=== PATIENT | female | born 1985 | race Caucasian/White ===

== ENCOUNTER 2019-04-25 16:21 | Inpatient (IN) | payer OTHER ==
[~2019-04-25] VITALS: Ht 162.6 cm; Wt 122.8 kg
[~2019-04-25 16:21] MED LIST: IRON18TA PO; PREN1TAB49 PO
[2019-04-25 16:40] VITALS: Ht 162.6 cm; Wt 122.8 kg
[2019-04-25] MEDS ORDERED: METH-480 PO (16:41)
[2019-04-25] MEDS ORDERED: METHYLDOPA 500 MG TAB PO SCH (17:00)
[2019-04-25] MEDS ORDERED: LACTATED RINGER'S 1,000 ML IV SCH ×2 (18:02→21:34)
[2019-04-25 19:08] VITALS: BP 137/81; PULSE 79; RESP 19
--- NOTE | 2019-04-25 19:45 | HP ---
Date/Time of Note Date/Time of Note DATE: 04/25/19 TIME: 19:42 OB - History Hx of Present Chief Complaint: referred from NST due to elevated BP Estimated Due Date: May 21, 2019 Care: Good Care Ultrasounds: Normal mid trimester US Obstetrical Complications: None Medical Complications: Other (chronic hypertension) Past Family/Social History * Past Medical, Surgical, Family and Obstetric Histories reviewed from chart. OB Admission Exam Vital Signs Vital Signs Vital Signs Date Temp Pulse Resp B/P (MAP) Pulse Ox O2 O2 Flow FiO2 Time Delivery Rate 04/25/19 98.3 79 19 137/81 Room Air 19:08 (99) Physical Exam HEENT: WNL Heart: Rhythm Normal Lungs: Clear, Equal Abdomen: WNL Extremities: Normal Reflexes: Normal Heart Rate: 120's Accelerations: Accelerations Present Decelerations: No Decelerations Last 72 hours Lab Results CBC & BMP 04/25/19 17:12 Liver Function Test 04/25/19 17:12 Alanine Aminotransferase (ALT/SGPT) 23 Albumin 3.1 L Alkaline Phosphatase 114 Aspartate Amino Transf (AST/SGOT) 20 Direct Bilirubin 0.00 Total Protein 6.1 OB Assessment/Plan Reason for admission: other Other Assessment: R/O superimposed preeclampsia Plan: Other Other plan: Admit Monitor BP PI labs ANGELA PAIZ MD Apr 25, 2019 19:45
[2019-04-25] MEDS ORDERED: METHYLDOPA 250 MG TAB PO SCH (20:00)
[2019-04-25] MEDS ORDERED: LACTATED RINGER'S 1,000 ML IV PRN (21:34)
[2019-04-25] MEDS ORDERED: MAGNESIUM SULFATE 4 GM/100 ML 100 ML ONE (21:52)
[2019-04-25] MEDS ORDERED: OXYTOCIN 30 UNITS/LR 500 ML IV SCH ×2 (22:00)
[2019-04-25] MEDS ORDERED: LIDOCAINE 1% (MPF) 30 ML INJ INJ PRN (22:00)
[2019-04-25] MEDS ORDERED: OXYTOCIN 30 UNITS/LR 500 ML IV PRN (22:00)
[2019-04-25] MEDS ORDERED: IBUPROFEN 600 MG TAB PO PRN (22:00)
[2019-04-25] MEDS ORDERED: MAGNESIUM SULFATE 4 GM/100 ML 100 ML IV ONE (22:00)
[2019-04-25] MEDS ORDERED: METHYLERGONOVINE 0.2 MG INJ IM PRN (22:00)
[2019-04-25] MEDS ORDERED: MISOPROSTOL 200 MCG TAB PR PRN (22:00)
[2019-04-25] MEDS ORDERED: CARBOPROST 250 MCG INJ IM PRN (22:00)
[2019-04-25] MEDS ORDERED: LABETALOL HCL 20MG INJ IV PRN (22:00)
[2019-04-25] MEDS ORDERED: BUTORPHANOL 2 MG INJ IV PRN (22:00)
[2019-04-25] MEDS: MAGNESIUM SULFATE 20 GM/500 ML 500 ML IV SCH (22:48)
[2019-04-26] MEDS: MISOPROSTOL 50 MCG CAPSULE PO SCH ×2 (00:23→05:00)
[2019-04-26] MEDS ORDERED: OXYTOCIN 30 UNITS/LR 500 ML IV SCH (04:30)
[2019-04-26] MEDS: MAGNESIUM SULFATE 20 GM/500 ML 500 ML IV SCH ×2 (08:44→18:31)
[2019-04-26] MEDS ORDERED: PRENATAL VITAMIN PO SCH (09:00)
[2019-04-26] MEDS ORDERED: FERROUS SULFATE (EC) 325 MG TAB PO SCH (09:00)
--- NOTE | 2019-04-26 10:08 | PREAC ---
Date/Time of Note Date/Time of Note DATE: 04/26/19 TIME: 10:06 Anesthesia Eval and Record Evaluation Time Pre-Procedure Interview DATE: 04/26/19 TIME: 10:06 Age 33 Sex female NPO: 8 hrs Preoperative diagnosis Planned procedure labor epidural Past Medical History Past Medical History: Includes Cardio: HTN : : (2), Para: (1), Gestational age: (36.3), PIH Surgery & Anesthesia Issues No known issue Meds Anticoagulation: No Beta Willy within 24 hr: No Reason Beta Willy not given: Pt. not on B-Willy Reported Medications Methyldopa* (Aldomet*) 500 Mg Tab, 500 MG PO BID, #60 TAB 04/25/19 Iron (Iron) 18 Mg Tablet, 18 MG PO DAILY 08/27/11 Vits W-Ca,Fe,Fa(<1MG) () 1 Tab Tablet, 1 TAB PO DAILY 08/27/11 Current Medications Prenat Multivit/ [place] Machine Operator/Iron/Folic Ac () 1 tab DAILY PO ; Start 04/26/19 at 09:00 Ferrous Sulfate (Ferrous Sulfate (Ec)) 325 mg DAILY PO ; Start 04/26/19 at 09:00 Methyldopa (Aldomet) 500 mg BID PO Last administered on 04/25/19at 20:02; Admin Dose 500 MG; Start 04/25/19 at 20:00 Lactated Ringer's 1,000 ml @ 75 mls/hr [id number] IV Last administered on 04/26/19at 05:38; Admin Dose 75 MLS/HR; Start 04/25/19 at 21:34 Butorphanol Tartrate (Stadol) 2 mg Q2H PRN IV .PAIN SCALE 6-10; Start 04/25/19 at 22:00 Lidocaine (Xylocaine 1% (Mpf)) 30 ml ONCE PRN INJ .EPISIOTOMY; Start 04/25/19 at 22:00 Oxytocin/Lactated Ringer's 500 ml @ 500 mls/hr ONCE POST IV ; Start 04/25/19 at 22:00 Oxytocin/Lactated Ringer's 500 ml @ 125 mls/hr POST IV ; Start 04/25/19 at 22:00 Ibuprofen (Motrin) 600 mg ONCE PRN PO .PAIN 1-5; Start 04/25/19 at 22:00 Lactated Ringer's 1,000 ml @ 2,000 mls/hr Q30M PRN IV .ANESTHESIA; Start 04/25/19 at 21:34 Oxytocin/Lactated Ringer's 500 ml @ 0 mls/hr ONCE PRN IV .VAGINAL BLEEDING; Start 04/25/19 at 22:00 Methylergonovine Maleate (Methergine) 0.2 mg ONCE PRN IM .VAGINAL BLEEDING; Start 04/25/19 at 22:00 Carboprost Tromethamine (Hemabate) 250 mcg ONCE PRN IM .VAGINAL BLEEDING; Start 04/25/19 at 22:00 Misoprostol (Cytotec) 1,000 mcg ONCE PRN HI .VAGINAL BLEEDING; Start 04/25/19 at 22:00 Misoprostol (Cytotec 50 Mcg Capsule) 50 mcg Q4 PO Last administered on 04/26/19at 00:23; Admin Dose 50 MCG; Start 04/26/19 at 01:00 Magnesium Sulfate 500 ml @ 50 mls/hr Q10H IV Last administered on 04/26/19at 08:44; Admin Dose 50 MLS/HR; Start 04/25/19 at 21:34 Labetalol HCl (Labetalol) 20 mg PRN PRN IV ELEVATED BLOOD PRESSURE Last admini stered on 04/25/19at 22:49; Admin Dose 20 MG; Start 04/25/19 at 22:00 Oxytocin/Lactated Ringer's 500 ml @ 0 mls/hr FOR INDUCTION IV Last administered on 04/26/19at 05:39; Admin Dose 1 MLS/HR; Start 04/26/19 at 04:30 Meds reviewed: Yes Allergies Coded Allergies: No Known Drug Allergies (Verified Allergy, Unknown, 04/25/19) Allergies Reviewed: Yes Labs/Studies Labs Reviewed: Reviewed by anesthesiologist Result Diagram: 04/25/19 1712 04/25/19 1712 Laboratory Tests 04/25/19 17:12 Blood Bank Test 04/25/19 17:11 Antibody Screen NEGATIVE Blood Type A POSITIVE Rh Immune Globulin Candidate NO test: N/A Pre-procedure Exam Last vitals Vital Signs Date Temp Pulse Resp B/P (MAP) Pulse Ox O2 O2 Flow FiO2 Time Delivery Rate 04/25/19 98.3 79 19 137/81 Room Air 19:08 (99) Airway: Adequate mouth opening, Adequate thyromental dist Mallampati: Mallampati II Teeth: Normal Lung: Normal Heart: Normal ASA Physical Status ASA physical status: 2 Emergency: None Planned Anesthetic Neuraxial: Epidural Planned Pain Management Epidural Pre-operative Attestations Prior to commencing anesthesia and surgery, the patient was re-evaluated, there was verification of: *The patient's identity *The results of appropriate recent lab work and preoperative vital signs *The above evaluation not changing prior to induction *Anesthetic plan, risk benefits, alternative and complications discussed with patient/family; questions answered; patient/family understands, accepts and wishes to proceed. MAMI GROVE MD Apr 26, 2019 10:08
[2019-04-26] MEDS ORDERED: NALOXONE (0.4 MG/ML) INJ IV PRN (10:30)
[2019-04-26] MEDS ORDERED: DIPHENHYDRAMINE 50 MG INJ IV PRN (10:30)
[2019-04-26] MEDS ORDERED: FENTAnyl 2MCG/ML-ROPIV 0.2% 100 ML BAG EPI SCH (10:30)
[2019-04-26] MEDS ORDERED: ONDANSETRON 4 MG INJ IV PRN (10:30)
--- NOTE | 2019-04-26 10:41 | PAC ---
Date/Time of Note Date/Time of Note DATE: 04/26/19 TIME: 10:40 Post-Anesthesia Notes Post-Anesthesia Note Last documented vital signs Vital Signs Date Temp Pulse Resp B/P (MAP) Pulse Ox O2 O2 Flow FiO2 Time Delivery Rate 04/25/19 98.3 79 19 137/81 Room Air 19:08 (99) Activity: WNL Respiratory function: WNL Cardiovascular function: WNL Mental status: Baseline Pain reasonably controlled: Yes Hydration appropriate: Yes Nausea/Vomiting absent: Yes Comments BP: 140/82 HR: 82 RR: 16 T: 98.3 SaO2: 99% MAMI GROVE MD Apr 26, 2019 10:40
[2019-04-26] MEDS ORDERED: METHYLDOPA 250 MG TAB PO SCH (11:33)
--- NOTE | 2019-04-26 14:51 | LDN ---
Date/Time of Note Date/Time of Note DATE: 04/26/19 TIME: 14:48 Delivery Summary of normal female with nuchal cordx1 with true knot( surgeon's knot) Weeks of Gestation IUP 36w6d severe preecclampsia Placenta Delivered: Spontaneously Meconium: none Episiotomy: No Perineal laceration: 1 Laceration repair: 000ch gut Anesthesia type: Epidural Estimated blood loss: 150 Sponge & Needle done & correct: Yes All needle counts correct: Yes Any foreign bodies felt in the: No Infant Delivery Information Sex Sex: female Apgars 1 Minute: 7 5 Minute: 9 Suctioning Nose & mouth suctioned at viktoriya: Yes Delee suction performed: Yes Umbilical Cord Umbilical cord with: 3 Vessels Cord presentations: nuchal cord Nuchal cord present X: 1 Cord Blood was obtained: Yes Mother & Baby Disposition Disposition Mom & Baby to Maternity; Good: Yes Mom transferred to: Other () Baby to NICU: No GEGE HASSAN MD Apr 26, 2019 14:51
[2019-04-26 17:45] VITALS: BP 139/84; PULSE 100; RESP 18
[2019-04-26] MEDS ORDERED: METHYLERGONOVINE 0.2 MG INJ IM PRN (18:30)
[2019-04-26] MEDS ORDERED: MISOPROSTOL 200 MCG TAB PR PRN (18:30)
[2019-04-26] MEDS ORDERED: BENZOCAINE 20% 56 ML SPRAY TOP PRN (18:30)
[2019-04-26] MEDS ORDERED: CARBOPROST 250 MCG INJ IM PRN (18:30)
[2019-04-26] MEDS ORDERED: WITCH HAZEL/GLYCERIN PAD PR PRN (18:30)
[2019-04-26] MEDS ORDERED: OXYCODONE/ASPIRIN (4.88/325) TAB PO PRN ×2 (18:30)
[2019-04-26] MEDS ORDERED: ZOLPIDEM 5 MG TAB PO PRN (18:30)
[2019-04-26] MEDS ORDERED: OXYTOCIN 30 UNITS/LR 500 ML IV PRN (18:30)
[2019-04-26] MEDS: LANOLIN HPA 1 PKT TOP PRN (18:31)
[2019-04-26] MEDS: LACTATED RINGER'S 1,000 ML IV SCH (18:32)
[2019-04-26 18:42] VITALS: BP 134/76; PULSE 99; RESP 18
[2019-04-26 20:00] VITALS: BP 141/75; PULSE 94; RESP 22
[2019-04-26 21:00] VITALS: BP 146/85; PULSE 94; RESP 20
[2019-04-26] MEDS: SENNA/DOCUSATE NA (8.6MG/50MG) TAB PO SCH (21:10)
[2019-04-26 22:00] VITALS: BP 144/75; PULSE 94; RESP 20
[2019-04-26 23:00] VITALS: BP 142/76; PULSE 63; RESP 21
[2019-04-27] VITALS (18 sets, daily range): BP systolic 124–143; BP diastolic 67–79; PULSE 70–96; RESP 17–21
[2019-04-27] MEDS: IBUPROFEN 600 MG TAB PO SCH ×4 (00:22→17:51)
[2019-04-27] MEDS: MAGNESIUM SULFATE 20 GM/500 ML 500 ML IV SCH (04:53)
[2019-04-27] MEDS: LACTATED RINGER'S 1,000 ML IV SCH (06:15)
[2019-04-27] MEDS: SENNA/DOCUSATE NA (8.6MG/50MG) TAB PO SCH ×2 (08:50→21:59)
--- NOTE | 2019-04-27 09:06 | NSTRPT ---
NST Information Datetime Report Generated by CPN: 04/27/2019 09:06 Datetime: 04/25/2019 14:50 NST Information EGA: 36.2 Test Number: 9 Time on Monitor: 04/25/2019 15:19 Time off Monitor: 04/25/2019 15:46 NST Duration (Min): 27 Reason for NST: Chronic Hypertension; Other Reason for NST Other: Advanced maternal age, large fibroid Test and Monitor Explained: Monitor Explained; Test Explained; Verbalized Understanding Pulse: 75 Resp: 20 SBP: 138 DBP: 76 Test Evaluation NST Interventions: Reposition Patient; Acoustic Stimulation Patient States Movement: Present Contraction Frequency: NONE FHR Baseline : 140 Variability: Moderate 6-25bpm Accelerations: 15X15 Decelerations: None FHR Category: Category I NST Results: Reactive Comments: To US NANCY-13.8, CEPHALIC.1531-DR KIDD NOTIFIED OF BP'S-RECOMMENDING PT TO GO TO [facility] OR [facility] WORK UP. 1543-DR PAIZ INFORMED BY BERNARDA BRITT OF BP'S AND DR KIDD'S RECOMMENDATION TO SEND P T TO [facility]. 1545-BERNARDA CALLED [facility] AND GAVE REPORT TO JAYCOB RN REPEAT BPS 140/80, 145/81, 164/91 Electronically Signed By E-Signature: with User ID: [id number], Addendum/Amendment: signed for Dr. Kidd Datetime: 04/21/2019 14:25 NST Information EGA: 35.5 NST Duration (Min): 47 Datetime: 04/18/2019 14:55 NST Information EGA: 35.2 NST Duration (Min): 23 Datetime: 04/14/2019 14:39 NST Information EGA: 34.5 NST Duration (Min): 43 Datetime: 04/11/2019 14:57 NST Information EGA: 34.2 NST Duration (Min): 36 Datetime: 04/07/2019 14:30 NST Information EGA: 33.5 NST Duration (Min): 32 Datetime: 04/05/2019 14:39 NST Information EGA: 33.3 NST Duration (Min): 28 Datetime: 03/31/2019 14:57 NST Information EGA: 32.5 NST Duration (Min): 31 Datetime: 03/28/2019 09:50 NST Information EGA: 32.2 NST Duration (Min): 24
--- NOTE | 2019-04-27 16:25 | PN ---
Date/Time of Note Date/Time of Note DATE: 04/27/19 TIME: 16:17 OB Subjective Subjective Subjective PPD# 1 Patient is doing well. She denies nausea, vomiting, shortness of breath, chest pain, headache. She has been ambulating without difficulty, tolerating regular diet. Pain is well controlled on current medications OB Objective Objective Objective Vital Signs Date Temp Pulse Resp B/P (MAP) Pulse Ox O2 O2 Flow FiO2 Time Delivery Rate 04/27/19 98.3 70 19 143/72 98 Room Air 16:12 (95) General: AAO X 3, comfortable, NAD, appropriate mood and affect. Heart: Regular rhythm and rate no murmur Lung: Clear to auscultation bilateral ABD: +BS. Soft, non-tender. Uterus 2 cm below umbilicus Flank: No CVA tenderness (B/L) Incision: Dry dressing LE: Mild edema. No clubbing, cyanosis, thigh or calf tenderness (B/L). Homans 'sign is negative OB Assessment/Plan Other plan: 33 years old with chronic hypertension and superimposed preeclampsia s/p normal vaginal delivery at 36 weeks and 5 days. PPD#1 - AF, VSS - Discontinue magnesium sulfate and removal of Freeman catheter 24 hours after delivery - She was on Aldomet 500mg 12 hours during . Currently all blood pressure is within normal limits, however currently is on magnesium sulfate. Aldomet 250 mg every 12 hours ordered, will increase to 500 mg every 12 hours if blood pressures not controlled - Continue care - Follow up by RON Adrian Apr 27, 2019 16:25
[2019-04-27] MEDS: METHYLDOPA 250 MG TAB PO SCH (21:59)
[2019-04-28] MEDS: IBUPROFEN 600 MG TAB PO SCH ×4 (00:24→17:21)
[2019-04-28 04:30] VITALS: BP 144/71; PULSE 80; RESP 20
[2019-04-28 08:30] VITALS: BP 151/83; PULSE 71; RESP 42
[2019-04-28] MEDS ORDERED: DIPHTH/TET/ACEL PERTUSS (ADULT) 0.5 ML VIAL IM* ONE ×2 (09:00→17:30)
[2019-04-28] MEDS: SENNA/DOCUSATE NA (8.6MG/50MG) TAB PO SCH ×2 (09:16→20:51)
[2019-04-28] MEDS: METHYLDOPA 250 MG TAB PO SCH ×2 (09:16→20:50)
[2019-04-28] MEDS: LANOLIN HPA 1 PKT TOP PRN (09:52)
[2019-04-28 15:34] VITALS: BP 142/88; PULSE 87; RESP 14
--- NOTE | 2019-04-28 19:43 | QN ---
Documentation Comment No complaint Afebrile VSS Fundus firm PPD #2 Stable Monitor BP ANGELA PAIZ MD Apr 28, 2019 19:43
[2019-04-28 20:15] VITALS: BP 138/83; PULSE 63; RESP 20
[2019-04-29] VITALS: BP 121/65; PULSE 75; RESP 18
[2019-04-29] MEDS: IBUPROFEN 600 MG TAB PO SCH ×3 (00:08→11:52)
[2019-04-29 04:00] VITALS: BP 147/69; PULSE 64; RESP 20
[2019-04-29 08:00] VITALS: BP 136/68; PULSE 80; RESP 18
[2019-04-29] MEDS: METHYLDOPA 250 MG TAB PO SCH (09:25)
[2019-04-29 09:26] VITALS: BP 142/75; PULSE 89; RESP 18
[2019-04-29] MEDS: SENNA/DOCUSATE NA (8.6MG/50MG) TAB PO SCH (09:26)
[2019-04-29 11:52] VITALS: BP 138/78; PULSE 73; RESP 18
--- NOTE | 2019-04-29 13:44 | DS ---
Date/Time of Note Date/Time of Note DATE: 04/29/19 TIME: 13:43 Obstetrical Discharge Record Final Diagnosis Final Diagnosis: delivered Vaginal Delivery Obstetrical Delivery: Spontaneous Complications Preg induced Hypertension, Other (chronic hypertension, superimposed preeclampsia with severe features) Induction: Yes Condition on Discharge Physical Assessment Voiding: Yes Bowel Movement: Yes Breast: Soft, non-tender, Filling Fundus: Firm Calf Tenderness: No Patient Condition: Stable ANGELA PAIZ MD Apr 29, 2019 13:44
[2019-04-29 14:13] VITALS: BP 143/77; PULSE 88; RESP 18
--- NOTE | 2019-04-30 15:08 | DELSUM ---
Delivery Summary A-C Datetime Report Generated by CPN: 04/30/2019 15:07 DELIVERY PERSONNEL Plate Filler: Cramer, Tiffanie MATERNAL INFORMATION Delivery Anesthesia: Epidural Medications in Delivery: pitocin and mag Delivery QBL (ml): 150 Placenta Cultured: No Maternal Complications: Other Other Maternal Complications: chronic HTN LABOR SUMMARY EDC: 05/21/2019 00:00 No. Babies in Womb: 1 Attempted: No Labor Anesthesia: Epidural LABOR INFORMATION Reason for Induction: Chronic Hypertension Onset of Labor: 04/26/2019 10:00 Complete Dilatation: 04/26/2019 14:16 Cervical Ripening Agents: Cytotec @ Oxytocin: Induction Group B Beta Strep: Negative Antibiotics # of Doses: 0 Steroids Given: None Reason Steroids Not Administered: Not Applicable MEMBRANES Membranes Rupture Method: Spontaneous Rupture of Membranes: 04/26/2019 02:45 Length of Rupture (hr): 11.77 Amniotic Fluid Color: Clear Amniotic Fluid Amount: Moderate Amniotic Fluid Odor: Normal STAGES OF LABOR Stage 1 hr: 4 Stage 1 min: 16 Stage 2 hr: 0 Stage 2 min: 15 Stage 3 hr: 0 Stage 3 min: 4 Total Time in Labor hr: 4 Total Time in Labor min: 35 VAGINAL DELIVERY Episiotomy: None Laceration Extension: First Degree Laceration Type: Perineal Laceration Repair: Yes Initial Vag Sponge Count: 10 Final Vag Sponge Count: 10 Initial Vag Sharps Count: 1 Final Vag Sharps Count: 3 Sponge Count Correct: Yes; Vaginal Sweep Performed Sharps Count Correct: Yes BABY A INFORMATION Delivery Date/Time: 04/26/2019 14:31 Method of Delivery: Vaginal Born in Route : No : N/A Forceps: N/A Vacuum Extraction: N/A Shoulder Dystocia : No SHOULDER DYSTOCIA BABY A Infant Delivery Date/Time: 04/26/2019 14:31 PRESENTATION/POSITION BABY A Presentation: Cephalic Cephalic Presentation: Vertex Vertex Position: Left Occipital Anterior Breech Presentation: N/A PLACENTA INFORMATION BABY A Placenta Delivery Time : 04/26/2019 14:35 Placenta Method of Delivery: Spontaneous Placenta Status: Delivered SCORES BABY A Heart Rate 1 min: >100 bpm Resp Effort 1 min: Good Cry Reflex Irritability 1 min: Cough/Sneeze/Pulls Away Muscle Tone 1 min: Some Flexion of Extrem Color 1 min: Blue/Pale Resuscitation Effort 1 min: Tactile Stimulation; PPV/NCPAP SCORE 1 MIN: 7 Heart Rate 5 min: >100 bpm Resp Effort 5 min: Good Cry Reflex Irritability 5 min: Cough/Sneeze/Pulls Away Muscle Tone 5 min: Active Motion Color 5 min: Body [place], Extremit Blue Resuscitation Effort 5 min: Tactile Stimulation SCORE 5 MIN: 9 INFORMATION BABY A Gestational Age at Delivery: 36.3 Gestational Status: Late - 34- 36.6 Weeks Outcome : Liveborn Condition : Stable Sex: Female IDENTIFICATION/MEDS BABY A ID Band Number: [id number] ID Band Location: Right Leg; Left Arm Sensor Number: [id number] Sensor Location : Cord Clamp Vitamin K Given : Not Given Erythromycin Given: Not Given WEIGHT/LENGTH BABY A Birthweight (gm): 3480 Infant Weight (lb): 7 Infant Weight (oz): 11 Length (in): 20.00 Infant Length (cm): 50.80 CORD INFORMATION BABY A No. Cord Vessels: 3 Nuchal Cord : Around Neck x1, Tight True Knot: 1 Cord Blood Taken: No Infant Suction: Mouth; Nose ASSESSMENT BABY A Infant Complications: None Physical Findings at Delivery: Caput Succedaneum Respirations: Appears Normal Automobile Racer/ALS Called : Yes Care By: nicu and rt Transferred To: Remains with Mother
== END 2019-04-29 14:55 | disposition home or self-care (01) | DRG 807 ==
LOC: OBT 16:21 → L-D 16:22 → OBT 17:27 → L-D 17:27 → PP1 04-26 17:29
PROVIDERS: ADMIT Obstetrics & Gynecology; ATTEND Obstetrics & Gynecology
PROC: 4A1HXCZ Monitoring of Products of Conception, Cardiac Rate, External Approach (ICD-10-PCS; 2019-04-25)
PROC: 10E0XZZ Delivery of Products of Conception, External Approach (ICD-10-PCS; principal; 2019-04-26)
PROC: 3E0234Z Introduction of Serum, Toxoid and Vaccine into Muscle, Percutaneous Approach (ICD-10-PCS; 2019-04-28)
DX: O14.14 Severe pre-eclampsia complicating childbirth (principal); Z37.0 Single live birth; O60.14X0 Preterm labor third trimester with preterm delivery third trimester, not applicable or unspecified; O69.1XX0 Labor and delivery complicated by cord around neck, with compression, not applicable or unspecified; Z3A.36 36 weeks gestation of pregnancy; Z23 Encounter for immunization
CPT/HCPCS: 36415; 62322; 76815; 80053; 81001; 83735; 84560; 85025; 85610; 85730; 86592; 86850; 86900; 86901; 87086; 87340; 88307; 90715; 99464; G0463; J2590; J3010; J3475; J7120